=== PATIENT | female | born 1975 | race American Indian/Alaskan Native ===

== ENCOUNTER 2019-04-20 16:45 | Emergency (ER) | payer MEDICAID ==
--- NOTE | 2019-04-20 17:13 | Event Note ---
ED Screening Note Date of service: 04/20/19 Time: 17:12 ED Screening Note: 43 y o f presents with URI sx states her 2 sons have similar sx This initial assessment/diagnostic orders/clinical plan/treatment(s) is/are subject to change based on patients health status, clinical progression and re- assessment by fellow clinical providers in the ED. Further treatment and workup at subsequent clinical providers discretion. Patient/guardian urged not to elope from the ED as their condition may be serious if not clinically assessed and managed. Initial orders include:
--- NOTE | 2019-04-20 22:04 | Emergency Department Report ---
- General Chief Complaint: Upper Respiratory Infection Stated Complaint: FLU SYMPTOMS Time Seen by Provider: 04/20/19 17:11 Source: patient Mode of arrival: Ambulatory Limitations: No Limitations - History of Present Illness MD Complaint: rhinorrhea, nasal congestion, sinus pain -: Sudden, days(s) (2) Severity: moderate Severity scale (0 -10): 3 Quality: dull, aching Consistency: constant Improves With: nothing Worsens With: nothing Context: sick contacts Associated Symptoms: denies other symptoms, rhinorrhea, nasal congestion. denies: fever, chills, headache, sore throat, stiff neck, cough, chest pain, shortness of breath, abdominal pain, nausea, vomiting, diarrhea, rash, confusion, epistaxis, hoarseness, ear pain Treatments Prior to Arrival: none - Related Data Previous Rx's Medication Instructions Recorded Last Taken Type Famotidine [Pepcid] 40 mg PO QHS #10 tablet 04/15/19 Unknown Rx Ondansetron [Zofran Odt] 4 mg PO Q8HR #10 tab.rapdis 04/15/19 Unknown Rx traMADol [Ultram] 50 mg PO Q6HR PRN #12 tablet 04/15/19 Unknown Rx Cetirizine HCl [Zyrtec 10mg tab] 10 mg PO DAILY #30 tablet 04/20/19 Unknown Rx Fluticasone [Flonase] 1 spray NS QDAY #1 bottle 04/20/19 Unknown Rx Allergies Allergy/AdvReac Type Severity Reaction Status Date / Time No Known Allergies Allergy Verified 04/20/19 16:49 ED Review of Systems ROS: Stated complaint: FLU SYMPTOMS Other details as noted in HPI Constitutional: denies: chills, fever Eyes: denies: eye pain, eye discharge, vision change ENT: congestion. denies: ear pain, throat pain Respiratory: denies: cough, shortness of breath, wheezing Cardiovascular: denies: chest pain, palpitations Endocrine: no symptoms reported Gastrointestinal: denies: abdominal pain, nausea, diarrhea Genitourinary: denies: urgency, dysuria, discharge Musculoskeletal: denies: back pain, joint swelling, arthralgia Skin: denies: rash, lesions Neurological: denies: headache, weakness, paresthesias Psychiatric: denies: anxiety, depression Hematological/Lymphatic: denies: easy bleeding, easy bruising ED Past Medical Hx - Past Medical History Previous Medical History?: Yes Additional medical history: Obesity - Surgical History Past Surgical History?: Yes Additional Surgical History: Tonsillectomy - Social History Smoking Status: Never Smoker Substance Use Type: None - Medications Home Medications: Home Medications Medication Instructions Recorded Confirmed Last Taken Type Famotidine [Pepcid] 40 mg PO QHS #10 tablet 04/15/19 Unknown Rx Ondansetron [Zofran Odt] 4 mg PO Q8HR #10 tab.rapdis 04/15/19 Unknown Rx traMADol [Ultram] 50 mg PO Q6HR PRN #12 tablet 04/15/19 Unknown Rx Cetirizine HCl [Zyrtec 10mg tab] 10 mg PO DAILY #30 tablet 04/20/19 Unknown Rx Fluticasone [Flonase] 1 spray NS QDAY #1 bottle 04/20/19 Unknown Rx ED Physical Exam - General Limitations: No Limitations General appearance: alert, in no apparent distress - Head Head exam: Present: atraumatic, normocephalic, normal inspection - Eye Eye exam: Present: normal appearance, PERRL, EOMI Pupils: Present: normal accommodation - ENT ENT exam: Present: normal orophraynx, mucous membranes moist, TM's normal bilaterally, normal external ear exam, other (grossly congested nasal passages) - Neck Neck exam: Present: normal inspection, full ROM. Absent: tenderness, meningismus, lymphadenopathy, thyromegaly - Respiratory Respiratory exam: Present: normal lung sounds bilaterally. Absent: respiratory distress, wheezes, rhonchi, stridor, chest wall tenderness, accessory muscle use, decreased breath sounds, prolonged expiratory - Cardiovascular Cardiovascular Exam: Present: regular rate, normal rhythm, normal heart sounds. Absent: systolic murmur, diastolic murmur, rubs, gallop - GI/Abdominal GI/Abdominal exam: Present: soft, normal bowel sounds. Absent: tenderness, guarding, rebound, hyperactive bowel sounds, hypoactive bowel sounds, mass - Rectal Rectal exam: Present: deferred - Extremities Exam Extremities exam: Present: normal inspection, full ROM, normal capillary refill - Back Exam Back exam: Present: normal inspection, full ROM. Absent: CVA tenderness (L), muscle spasm, paraspinal tenderness - Neurological Exam Neurological exam: Present: alert, oriented X3, CN II-XII intact, normal gait, reflexes normal - Psychiatric Psychiatric exam: Present: normal affect, normal mood - Skin Skin exam: Present: warm, dry, intact, normal color. Absent: rash ED Course Vital Signs 04/20/19 04/20/19 17:11 22:12 Temperature 97.6 F 98.3 F Pulse Rate 91 H 95 H Respiratory 20 19 Rate Blood Pressure 114/83 Blood Pressure 118/71 [Left] O2 Sat by Pulse 95 98 Oximetry - Reevaluation(s) Reevaluation #1: 04/20/19 22:15 Patient is a 43-year-old female who presented to the ED with nasal and sinus congestion 2 days. ED: Patient is alert and oriented 3 and is not in distress. Patient was discharged home on medications, vital signs are stable. Patient was advised to follow-up with her primary care physician in 7-10 days for reevaluation or return to the ED immediately if symptoms get worse. ED Medical Decision Making - Medical Decision Making Patient is a 43-year-old female who presented to the ED with nasal and sinus congestion 2 days. ED: Patient is alert and oriented 3 and is not in distress. Patient was discharged home on medications, vital signs are stable. Patient was advised to follow-up with her primary care physician in 7-10 days for reevaluation or return to the ED immediately if symptoms get worse. - Differential Diagnosis Acute URI; Acute sinusitis; acute viral URI Critical care attestation.: If time is entered above; I have spent that time in minutes in the direct care of this critically ill patient, excluding procedure time. ED Disposition Clinical Impression: Acute upper respiratory infection, Viral upper respiratory infection Disposition: - TO HOME OR SELFCARE Is pt being admited?: No Does the pt Need Aspirin: No Condition: Stable Instructions: Upper Respiratory Infection (ED), Cold Symptoms (ED) Additional Instructions: Take medication with food, drink plenty of fluids and follow-up with your primary care physician in 5-7 days for reevaluation. Return to the ED immediately if symptoms get worse. Prescriptions: Fluticasone [Flonase] 1 spray NS QDAY #1 bottle Cetirizine HCl [Zyrtec 10mg tab] 10 mg PO DAILY #30 tablet Referrals: MOHSEN DIAZ [Other] - 3-5 Days Time of Disposition: 21:59 Print Language: SINHALA
[2019-04-20 22:13] VITALS: BP 118/71
== END 2019-04-20 23:07 | disposition home or self-care (01) ==
LOC: ED 16:45
DX: J06.9 Acute upper respiratory infection, unspecified (principal); Z98.890 Other specified postprocedural states; Z79.899 Other long term (current) drug therapy
CPT/HCPCS: 99282

== ENCOUNTER 2020-09-05 17:04 | Emergency (ER) | payer SELFPAY ==
--- NOTE | 2020-09-05 18:01 | Event Note ---
ED Screening Note ED Screening Note: lower abd pain n/v for two days no diarrhea no fever no urinary symptoms no abnormal discharge normal BM this morning at 3 AM no blood in stool no pmhx no allergies to meds LNMP: 08/21/2020 This initial assessment/diagnostic orders/clinical plan/treatment(s) is/are subject to change based on patients health status, clinical progression and re- assessment by fellow clinical providers in the ED. Further treatment and workup at subsequent clinical providers discretion. Patient/guardian urged not to elope from the ED as their condition may be serious if not clinically assessed and managed. Initial orders include: labs, UA
[2020-09-05 19:57] LABS: Hematocrit 40.8 % (30.3-42.9); Hemoglobin 13.6 gm/dl (10.1-14.3); Mean Corpuscular HGB Conc 33 % (30-34); Mean Corpuscular Volume 89 fl (79-97); Platelet Count 168 K/mm3 (140-440); Red Blood Count 4.57 M/mm3 (3.65-5.03); Red Cell Distribution Width 14.9 % (13.2-15.2)
[2020-09-05 20:02] LABS: Alanine Aminotransferase 10 units/L (7-56); Albumin 3.7 g/dL (3.9-5); Blood Urea Nitrogen 12 mg/dL (7-17); Hemolysis Index 19
[2020-09-05 20:17] LABS: BUN/Creatinine Ratio 30
[2020-09-05 20:49] LABS: Bilirubin,Urine NEG (Negative); Blood,Urine NEG (Negative); Color,Urine Yellow (Yellow); Mucus,Urine FEW /HPF; Protein,Urine <15 mg/dL mg/dL (Negative); Urobilinogen,Urine < 2.0 mg/dL (<2.0)
--- NOTE | 2020-09-05 20:50 | Emergency Department Report ---
HPI - General Chief Complaint: Abdominal Pain Time Seen by Provider: 09/05/20 17:59 - HPI HPI: Room 40 The patient is a 44-year-old female present with a chief complaint of abdominal pain. The patient states for the past 2 days she has had intermittent suprapubic pain stating she feels as though something is moving. Patient admits to nausea vomiting and dizziness with her symptoms. The patient states she is concerned she may be even though she has had her tubes tied in the past. Patient states her LMP occurred August 21, 2020 and was the normal time. Patient denies dysuria, hematuria or vaginal discharge. Patient denies fever ED Past Medical Hx - Past Medical History Previous Medical History?: Yes Additional medical history: Obesity - Surgical History Past Surgical History?: Yes Additional Surgical History: Tonsillectomy, bilateral tubal ligation - Family History Family history: no significant - Social History Smoking Status: Never Smoker Substance Use Type: None (Denies illicit drug use) - Medications Home Medications: Home Medications Medication Instructions Recorded Confirmed Last Taken Type Famotidine [Pepcid] 40 mg PO QHS #10 tablet 04/15/19 Unknown Rx Ondansetron [Zofran Odt] 4 mg PO Q8HR #10 tab.rapdis 04/15/19 Unknown Rx traMADoL [Ultram] 50 mg PO Q6HR PRN #12 tablet 04/15/19 Unknown Rx Cetirizine HCl [Zyrtec 10mg tab] 10 mg PO DAILY #30 tablet 04/20/19 Unknown Rx Fluticasone [Flonase] 1 spray NS QDAY #1 bottle 04/20/19 Unknown Rx HYDROcodone/APAP 5-325 [[place] 1 - 2 each PO Q6HR PRN #10 tablet 09/05/20 Unknown Rx 5/325] Promethazine [Phenergan] 25 mg PO Q6HR PRN #20 tab 09/05/20 Unknown Rx Promethazine [Phenergan] 25 mg SD Q6HR PRN #5 supp.rect 09/05/20 Unknown Rx Sulfamethoxazole/Trimethoprim 1 each PO BID #14 tablet 09/05/20 Unknown Rx [Bactrim DS TAB] ED Review of Systems ROS: Stated complaint: ABDOMINAL/PUBIC PAIN Other details as noted in HPI Constitutional: denies: fever Eyes: denies: eye pain ENT: denies: throat pain Respiratory: no symptoms reported Cardiovascular: denies: chest pain Endocrine: no symptoms reported Gastrointestinal: abdominal pain, nausea, vomiting. denies: diarrhea Genitourinary: denies: dysuria, hematuria, discharge, abnormal menses Musculoskeletal: denies: back pain Neurological: denies: headache Physical Exam - Physical Exam Vital Signs: Vital Signs 09/05/20 17:11 Pulse Rate 69 Respiratory 18 Rate Blood Pressure 117/72 [Right] O2 Sat by Pulse 97 Oximetry Physical Exam: GENERAL: The patient is well-developed well-nourished female lying on stretcher not appearing to be in acute distress. [] HEENT: Normocephalic. Atraumatic. Extraocular motions are intact. Patient has moist mucous membranes. NECK: Supple. Trachea midline CHEST/LUNGS: Clear to auscultation. There is no respiratory distress noted. HEART/CARDIOVASCULAR: Regular. There is no tachycardia. There is no gallop rub or murmur. ABDOMEN: Abdomen is soft, with mild discomfort to palpation in the suprapubic region only. There is no rebound or guarding. Patient has normal bowel sounds. There is no abdominal distention. SKIN: There is no rash. There is no edema. There is no diaphoresis. NEURO: The patient is awake, alert, and oriented. The patient is cooperative. The patient has normal speech MUSCULOSKELETAL: There is no evidence of acute injury. ED Course Vital Signs 09/05/20 17:11 Pulse Rate 69 Respiratory 18 Rate Blood Pressure 117/72 [Right] O2 Sat by Pulse 97 Oximetry ED Medical Decision Making - Lab Data Result diagrams: 09/05/20 18:03 09/05/20 18:03 Laboratory Tests 09/05/20 09/05/20 09/05/20 18:03 18:03 18:03 WBC 7.1 RBC 4.57 Hgb 13.6 Hct 40.8 MCV 89 MCH 30 MCHC 33 RDW 14.9 Plt Count 168 Sodium 139 Potassium 4.2 Chloride 104.9 Carbon Dioxide 24 Anion Gap 14 BUN 12 Creatinine 0.4 L Estimated GFR > 60 BUN/Creatinine Ratio 30 Glucose 133 H Calcium 9.0 Total Bilirubin 0.30 AST 15 ALT 10 Alkaline Phosphatase 56 Total Protein 6.9 Albumin 3.7 L Albumin/Globulin Ratio 1.2 Lipase 24 HCG, Qual Negative Urine Color Urine Turbidity Urine pH Ur Specific [place] Urine Protein Urine Glucose (UA) Urine Ketones Urine Blood Urine Nitrite Urine Bilirubin Urine Urobilinogen Ur Leukocyte Esterase Urine WBC (Auto) Urine RBC (Auto) U Epithel Cells (Auto) Urine Mucus 09/05/20 19:21 WBC RBC Hgb Hct MCV MCH MCHC RDW Plt Count Sodium Potassium Chloride Carbon Dioxide Anion Gap BUN Creatinine Estimated GFR BUN/Creatinine Ratio Glucose Calcium Total Bilirubin AST ALT Alkaline Phosphatase Total Protein Albumin Albumin/Globulin Ratio Lipase HCG, Qual Urine Color Yellow Urine Turbidity Clear Urine pH 6.0 Ur Specific [place] 1.016 Urine Protein <15 mg/dl Urine Glucose (UA) Neg Urine Ketones Neg Urine Blood Neg Urine Nitrite Pos Urine Bilirubin Neg Urine Urobilinogen < 2.0 Ur Leukocyte Esterase Neg Urine WBC (Auto) 10.0 H Urine RBC (Auto) 1.0 U Epithel Cells (Auto) 2.0 Urine Mucus Few - Radiology Data Radiology results: report reviewed (CT abdomen pelvis), image reviewed (CT abdomen pelvis) Findings [facility] [address] [place] [address] Cat Scan Report Signed Patient: FAWAD BARILLAS MR#: [id number] : 1975 Acct:[id number] Age/Sex: 44 / F ADM Date: 09/05/20 Loc: ED Attending Dr: Ordering Physician: NOEMI ADAMSON MD Date of Service: 09/05/20 Procedure(s): CT abdomen pelvis w con Accession Number(s): [id number] cc: NOEMI ADAMSON MD CT ABDOMEN AND PELVIS WITH CONTRAST INDICATION: Lower abdominal pain CONTRAST: 100 cc Omnipaque 300 IV COMPARISON: None available. All CT scans at this location are performed using CT dose reduction for ALARA by means of automated exposure control. NOTE: Resolution is decreased and artifact is introd uced by the patient's size. FINDINGS: Lung bases are clear. No pneumoperitoneum is noted. No significant abdominal wall herniation is seen. No bowel or urinary obstructive changes are seen. Appendix appears within normal limits. No abdominal masses are seen. Gallbladder and bile ducts appear within normal limits. No focal inflammatory changes are seen. Small physiologic type ovarian cysts are noted. A small uterine leiomyoma is seen. No free fluid is seen. IMPRESSION: No acute abnormalities are seen Signer Name: Shailesh Dixon MD Signed: 09/05/2020 11:37 PM Workstation Name: [id number] Transcribed By: GJ Dictated By: Shailesh Dixon MD Electronically Authenticated By: Shailesh Dixon MD Signed Date/Time: 09/05/202336 DD/ 31 TD/TT: - Differential Diagnosis UTI, ectopic , appendicitis, gastritis Critical care attestation.: If time is entered above; I have spent that time in minutes in the direct care of this critically ill patient, excluding procedure time. ED Disposition Clinical Impression: Abdominal pain, UTI (urinary tract infection), Nausea & vomiting Disposition: TO HOME OR SELFCARE Is pt being admited?: No Does the pt Need Aspirin: No Condition: Stable Instructions: Abdominal Pain (ED), Urinary Tract Infection, Adult, [id number], Vomiting, Adult Additional Instructions: Return to the emergency department should you develop worsening symptoms, inability to tolerate food or liquids, high fever or any other concerns Prescriptions: Sulfamethoxazole/Trimethoprim [Bactrim DS TAB] 1 each PO BID #14 tablet HYDROcodone/APAP 5-325 [[place] 5/325] 1 - 2 each PO Q6HR PRN #10 tablet PRN Reason: Pain Promethazine [Phenergan] 25 mg PO Q6HR PRN #20 tab PRN Reason: Nausea Promethazine [Phenergan] 25 mg SD Q6HR PRN #5 supp.rect PRN Reason: Vomiting Referrals: PRIMARY CARE, [Primary Care Provider] - 3-5 Days Time of Disposition: 23:49
--- NOTE | 2020-09-05 23:42 | Cat Scan Report ---
CT ABDOMEN AND PELVIS WITH CONTRAST INDICATION: Lower abdominal pain CONTRAST: 100 cc Omnipaque 300 IV COMPARISON: None available. All CT scans at this location are performed using CT dose reduction for ALARA by means of automated e xposure control. NOTE: Resolution is decreased and artifact is introduced by the patient's size. FINDINGS: Lung bases are clear. No pneumoperitoneum is noted. No significant abdominal wall herniatio n is seen. No bowel or urinary obstructive changes are seen. Appendix appears within normal limits. N o abdominal masses are seen. Gallbladder and bile ducts appear within normal limits. No focal inflamm atory changes are seen. Small physiologic type ovarian cysts are noted. A small uterine leiomyoma is seen. No free fluid is seen. IMPRESSION: No acute abnormalities are seen Signer Name: Shailesh Dixon MD Signed: 09/05/2020 11:37 PM Workstation Name: [id number]
[2020-09-06 00:05] LABS: Total Cells Counted 100
[2020-09-06 00:08] LABS: RBC Morphology Normal
[2020-09-06 00:09] LABS: Large Platelets Rare; Platelet Estimate Cons
[2020-09-06 00:20] VITALS: BP 115/74
== END 2020-09-06 00:19 | disposition home or self-care (01) ==
LOC: ED 17:04
DX: N39.0 Urinary tract infection, site not specified (principal); R11.2 Nausea with vomiting, unspecified; Z98.51 Tubal ligation status; Z79.899 Other long term (current) drug therapy
CPT/HCPCS: 36415; 74177; 80053; 81001; 83690; 84703; 85007; 85025; 87086; 99284; Q9967

== ENCOUNTER 2021-07-25 00:20 | Emergency (ER) | payer MEDICAID ==
[2021-07-25 00:28] VITALS: BP 120/76
--- NOTE | 2021-07-25 02:38 | Emergency Department Report ---
ED Abdominal Pain HPI - General Chief Complaint: Abdominal Pain Stated Complaint: ABD PAIN Time Seen by Provider: 07/25/21 01:42 Source: patient Mode of arrival: Ambulatory Limitations: No Limitations - Related Data Previous Rx's Medication Instructions Recorded Last Taken Type Famotidine [Pepcid] 40 mg PO QHS #10 tablet 04/15/19 Unknown Rx Ondansetron [Zofran Odt] 4 mg PO Q8HR #10 tab.rapdis 04/15/19 Unknown Rx traMADoL [Ultram] 50 mg PO Q6HR PRN #12 tablet 04/15/19 Unknown Rx Cetirizine HCl [Zyrtec 10mg tab] 10 mg PO DAILY #30 tablet 04/20/19 Unknown Rx Fluticasone [Flonase] 1 spray NS QDAY #1 bottle 04/20/19 Unknown Rx HYDROcodone/APAP 5-325 [[place] 1 - 2 each PO Q6HR PRN #10 tablet 09/05/20 Unknown Rx 5/325] Promethazine [Phenergan] 25 mg PO Q6HR PRN #20 tab 09/05/20 Unknown Rx Promethazine [Phenergan] 25 mg MO Q6HR PRN #5 supp.rect 09/05/20 Unknown Rx Sulfamethoxazole/Trimethoprim 1 each PO BID #14 tablet 09/05/20 Unknown Rx [Bactrim DS TAB] Ibuprofen [Motrin] 600 mg PO Q8H PRN #20 tablet 07/25/21 Unknown Rx Allergies Allergy/AdvReac Type Severity Reaction Status Date / Time No Known Allergies Allergy Verified 07/25/21 00:27 ED Review of Systems ROS: Stated complaint: ABD PAIN Other details as noted in HPI ED Past Medical Hx - Past Medical History Additional medical history: Obesity - Surgical History Additional Surgical History: Tonsillectomy, bilateral tubal ligation - Social History Smoking Status: Never Smoker Substance Use Type: None (Denies illicit drug use) - Medications Home Medications: Home Medications Medication Instructions Recorded Confirmed Last Taken Type Famotidine [Pepcid] 40 mg PO QHS #10 tablet 04/15/19 Unknown Rx Ondansetron [Zofran Odt] 4 mg PO Q8HR #10 tab.rapdis 04/15/19 Unknown Rx traMADoL [Ultram] 50 mg PO Q6HR PRN #12 tablet 08/29/19 Unknown Rx Cetirizine HCl [Zyrtec 10mg tab] 10 mg PO DAILY #30 tablet 04/20/19 Unknown Rx Fluticasone [Flonase] 1 spray NS QDAY #1 bottle 04/20/19 Unknown Rx HYDROcodone/APAP 5-325 [[place] 1 - 2 each PO Q6HR PRN #10 tablet 09/05/20 Unknown Rx 5/325] Promethazine [Phenergan] 25 mg PO Q6HR PRN #20 tab 09/05/20 Unknown Rx Promethazine [Phenergan] 25 mg MO Q6HR PRN #5 supp.rect 09/05/20 Unknown Rx Sulfamethoxazole/Trimethoprim 1 each PO BID #14 tablet 09/05/20 Unknown Rx [Bactrim DS TAB] Ibuprofen [Motrin] 600 mg PO Q8H PRN #20 tablet 07/25/21 Unknown Rx ED Physical Exam - General Limitations: No Limitations ED Course Vital Signs 07/25/21 00:24 Temperature 98.3 F Pulse Rate 94 H Respiratory 17 Rate Blood Pressure 120/76 [Right] O2 Sat by Pulse 98 Oximetry - Reevaluation(s) Reevaluation #1: 07/25/21 02:38 Patient was discharged Critical care attestation.: If time is entered above; I have spent that time in minutes in the direct care of this critically ill patient, excluding procedure time. ED Disposition Clinical Impression: Irregular menses, Lower abdominal pain Disposition: 01 HOME / SELF CARE / HOMELESS Is pt being admited?: No Condition: Stable Instructions: Pain Without a Known Cause, Abdominal Pain (ED) Additional Instructions: Drink plenty water. Return for problems. See a grinder outside diameter for recheck. Use Tylenol for pain. Prescriptions: Ibuprofen [Motrin] 600 mg PO Q8H PRN #20 tablet PRN Reason: Pain Referrals: PRIMARY CARE, [Primary Care Provider] - 3-5 Days MYAH ARGUELLES MD [Staff Physician] - 3-5 Days ALISA COLIN MD [Staff Physician] - 3-5 Days
== END 2021-07-25 03:10 | disposition home or self-care (01) ==
LOC: ED 00:20
DX: N92.6 Irregular menstruation, unspecified (principal); R10.30 Lower abdominal pain, unspecified; Z90.89 Acquired absence of other organs; Z98.51 Tubal ligation status; Z79.899 Other long term (current) drug therapy
CPT/HCPCS: 36415; 84703; 99283

== ENCOUNTER 2022-02-21 22:33 | Emergency (ER) | payer MEDICAID ==
[2022-02-21 23:29] LABS: Mucus,Urine 3+ /HPF
[2022-02-21 23:37] LABS: Bilirubin,Urine Negative (Negative); Blood,Urine Moderate (Negative); Color,Urine Yellow (Yellow)
[2022-02-21 23:43] LABS: Basophils % (Auto) 0.4 % (0.0-1.8); Eosinophils % (Auto) 0.1 % (0.0-4.3); Hematocrit 44.5 % (30.3-42.9); Hemoglobin 14.7 gm/dl (10.1-14.3); Lymphocytes # (Auto) 1.4 K/mm3 (1.2-5.4); Lymphocytes % (Auto) 34.4 % (13.4-35.0); Mean Corpuscular HGB Conc 33 % (30-34); Mean Corpuscular Volume 87 fl (79-97); Monocytes # (Auto) 0.4 K/mm3 (0.0-0.8); Monocytes % (Auto) 9.5 % (0.0-7.3); Platelet Count 169 K/mm3 (140-440); Red Cell Distribution Width 14.2 % (13.2-15.2)
[2022-02-22] MEDS ORDERED: ONDANSETRON 4 MG ODT TAB PO ONE (04:27)
[2022-02-22] MEDS ORDERED: ACETAMINOPHEN 500 MG TAB PO ONE (04:27)
[2022-02-22] MEDS ORDERED: IBUPROFEN 600 MG TAB PO ONE (04:27)
[2022-02-22 04:52] LABS: Alanine Aminotransferase 23 units/L (7-56); Albumin 4.3 g/dL (3.9-5); Blood Urea Nitrogen 12 mg/dL (7-17); Calcium 10.1 mg/dL (8.4-10.2); Hemolysis Index 6
[2022-02-22 04:55] LABS: BUN/Creatinine Ratio 24
--- NOTE | 2022-02-22 05:25 | Emergency Department Report ---
ED Female HPI - General Chief complaint: Vaginal Bleeding Stated complaint: HEAD HURTS/STILL BLEEDING HEAVY Source: patient Mode of arrival: Ambulatory Limitations: No Limitations - History of Present Illness Initial comments: Patient is a 46-year-old female with no past medical history who presents to the ED with complaint of persistent pelvic pain and heavy vaginal bleeding with large blood clots for the last 1 week. Patient states that her cycle usually lasts 5 to 6 days but that it has extended to over 9 days with worsening pelvic pain. Patient also complains of lightheadedness and generalized weakness. Patient denies dysuria, urinary frequency and urgency, nausea and vomiting or diarrhea, fever, chills, cough, sore throat, heavy lifting, traumatic injury, low back pain, chest pain and shortness of breath or change in vision. MD Complaint: vaginal bleeding, pelvic pain, other (Heavy vaginal bleeding) -: week(s) (1) Location: suprapubic Radiation: non-radiating Severity: severe Severity scale (0 -10): 8 Quality: cramping, sharp Consistency: constant Improves with: none Worsens with: menstrual period Are you Now?: No Associated Symptoms: denies other symptoms, vaginal bleeding, abdominal pain (Suprapubic). denies: vaginal discharge, nausea/vomiting, fever/chills, headaches, loss of appetite, dysuria, hematuria, rash, seizure, shortness of breath, syncope, weakness - Related Data Sexually active: Yes Previous Rx's Medication Instructions Recorded Last Taken Type Famotidine [Pepcid] 40 mg PO QHS #10 tablet 04/15/19 Unknown Rx Ondansetron [Zofran Odt] 4 mg PO Q8HR #10 tab.rapdis 04/15/19 Unknown Rx Cetirizine HCl [Zyrtec 10mg tab] 10 mg PO DAILY #30 tablet 04/20/19 Unknown Rx Fluticasone [Flonase] 1 spray NS QDAY #1 bottle 04/20/19 Unknown Rx HYDROcodone/APAP 5-325 [Halls 1 - 2 each PO Q6HR PRN #10 tablet 09/05/20 Unknown Rx 5/325] Promethazine [Phenergan] 25 mg PO Q6HR PRN #20 tab 09/05/20 Unknown Rx Promethazine [Phenergan] 25 mg WI Q6HR PRN #5 supp.rect 09/05/20 Unknown Rx Sulfamethoxazole/Trimethoprim 1 each PO BID #14 tablet 09/05/20 Unknown Rx [Bactrim DS TAB] Ibuprofen [Motrin] 600 mg PO Q8H PRN #20 tablet 07/25/21 Unknown Rx Ibuprofen [Motrin] 800 mg PO Q8HR PRN #30 tablet 02/22/22 Unknown Rx Ondansetron [Zofran Odt] 4 mg PO Q8HR PRN #15 tab.rapdis 02/22/22 Unknown Rx traMADoL [Ultram 50 MG tab] 50 mg PO Q6HR PRN #12 tablet 02/22/22 Unknown Rx Allergies Allergy/AdvReac Type Severity Reaction Status Date / Time No Known Allergies Allergy Verified 07/25/21 00:27 ED Review of Systems ROS: Stated complaint: HEAD HURTS/STILL BLEEDING HEAVY Other details as noted in HPI Constitutional: denies: chills, fever Eyes: denies: eye pain, eye discharge, vision change ENT: denies: ear pain, throat pain Respiratory: denies: cough, shortness of breath, wheezing Cardiovascular: denies: chest pain, palpitations Endocrine: no symptoms reported Gastrointestinal: abdominal pain (Suprapubic pain). denies: nausea, vomiting, diarrhea, constipation, hematemesis, hematochezia Genitourinary: abnormal menses (Vaginal bleeding). denies: urgency, dysuria, discharge Musculoskeletal: denies: back pain, joint swelling, arthralgia Skin: denies: rash, lesions Neurological: denies: headache, weakness, paresthesias Psychiatric: denies: anxiety, depression Hematological/Lymphatic: denies: easy bleeding, easy bruising ED Past Medical Hx - Past Medical History Additional medical history: Obesity - Surgical History Additional Surgical History: Tonsillectomy, bilateral tubal ligation - Social History Smoking Status: Never Smoker Substance Use Type: None (Denies illicit drug use) - Medications Home Medications: Home Medications Medication Instructions Recorded Confirmed Last Taken Type Famotidine [Pepcid] 40 mg PO QHS #10 tablet 04/15/19 Unknown Rx Ondansetron [Zofran Odt] 4 mg PO Q8HR #10 tab.rapdis 04/15/19 Unknown Rx Cetirizine HCl [Zyrtec 10mg tab] 10 mg PO DAILY #30 tablet 04/20/19 Unknown Rx Fluticasone [Flonase] 1 spray NS QDAY #1 bottle 04/20/19 Unknown Rx HYDROcodone/APAP 5-325 [Halls 1 - 2 each PO Q6HR PRN #10 tablet 09/05/20 Unknown Rx 5/325] Promethazine [Phenergan] 25 mg PO Q6HR PRN #20 tab 09/05/20 Unknown Rx Promethazine [Phenergan] 25 mg WI Q6HR PRN #5 supp.rect 09/05/20 Unknown Rx Sulfamethoxazole/Trimethoprim 1 each PO BID #14 tablet 09/05/20 Unknown Rx [Bactrim DS TAB] Ibuprofen [Motrin] 600 mg PO Q8H PRN #20 tablet 07/25/21 Unknown Rx Ibuprofen [Motrin] 800 mg PO Q8HR PRN #30 tablet 02/22/22 Unknown Rx Ondansetron [Zofran Odt] 4 mg PO Q8HR PRN #15 tab.rapdis 02/22/22 Unknown Rx traMADoL [Ultram 50 MG tab] 50 mg PO Q6HR PRN #12 tablet 02/22/22 Unknown Rx ED Physical Exam - General Limitations: No Limitations General appearance: alert, in no apparent distress - Head Head exam: Present: atraumatic, normocephalic, normal inspection - Eye Eye exam: Present: normal appearance, PERRL, EOMI Pupils: Present: normal accommodation - ENT ENT exam: Present: normal exam, normal orophraynx, mucous membranes moist, TM's normal bilaterally, normal external ear exam - Neck Neck exam: Present: normal inspection, full ROM. Absent: tenderness - Respiratory Respiratory exam: Present: normal lung sounds bilaterally. Absent: respiratory distress, wheezes, rales, rhonchi, stridor, chest wall tenderness, accessory muscle use, decreased breath sounds - Cardiovascular Cardiovascular Exam: Present: regular rate, normal rhythm, normal heart sounds. Absent: systolic murmur, diastolic murmur, rubs, gallop - GI/Abdominal GI/Abdominal exam: Present: soft, tenderness (Palpable suprapubic tenderness), normal bowel sounds. Absent: guarding, rebound, hyperactive bowel sounds, hypoactive bowel sounds, organomegaly, mass, pulsatile mass - Bi-manual exam: Present: other (Pelvic exam deferred at this time) - Extremities Exam Extremities exam: Present: normal inspection, full ROM, normal capillary refill. Absent: tenderness, pedal edema, joint swelling, calf tenderness - Back Exam Back exam: Present: normal inspection, full ROM. Absent: tenderness, CVA tenderness (R), CVA tenderness (L), muscle spasm, paraspinal tenderness, vertebral tenderness - Neurological Exam Neurological exam: Present: alert, oriented X3, CN II-XII intact, normal gait, reflexes normal - Psychiatric Psychiatric exam: Present: normal affect, normal mood - Skin Skin exam: Present: warm, dry, intact, normal color. Absent: rash ED Course Vital Signs 02/21/22 22:47 Temperature 98.5 F Pulse Rate 102 H Respiratory 16 Rate Blood Pressure 142/89 O2 Sat by Pulse 93 Oximetry ED Medical Decision Making - Lab Data Result diagrams: 02/21/22 23:14 02/21/22 23:14 - Radiology Data Radiology results: report reviewed, image reviewed [facility] [address] [place] [address] Ultrasound Report Signed Patient: FAWAD BARILLAS MR#: [id number] : 1975 Acct:[id number] Age/Sex: 46 / F ADM Date: 02/21/22 Loc: ED Attending Dr: Ordering Physician: MARGARETTE COOK Date of Service: 02/22/22 Procedure(s): US pelvic complete Accession Number(s): [id number] cc: MARGARETTE COOK ULTRASOUND PELVIS INDICATION / CLINICAL INFORMATION: PELVIC PAIN, VAGINAL BLEEDING. TECHNIQUE: Transabdominal. Duplex Color Doppler used: Yes. COMPARISON: None available FINDINGS: UTERUS: The uterus measures 8.7 cm. The uterus demonstrates a normal sonogr aphic appearance. The endometrial stripe measures 1.3 cm. RIGHT ADNEXA: No significant ovarian cyst or mass. Normal color Doppler blood flow. LEFT ADNEXA: No significant ovarian cyst or mass. Normal color Doppler blood flow. URINARY BLADDER: No significant abnormality. FREE FLUID: None. ADDITIONAL FINDINGS: None. IMPRESSION: 1. Endometrial stripe measures 1.3 cm. This may be physiologic in a premenopausal patient but is abnormally thickened in a postmenopausal patient. Recommend correlation with menstrual status. 2. No other significant abnormality. Signer Name: Darling Olson MD Signed: 02/22/2022 6:07 AM Workstation Name: [id number] Transcribed By: JULIETTE Dictated By: DARLING OLSON MD Electronically Authenticated By: DARLING OLSON MD Signed Date/Time: 02/22/22606 DD/ 4 TD/TT: - Medical Decision Making This is a 46-year-old female with no past medical history who presents to the ED with complaint of persistent pelvic pain and heavy vaginal bleeding with large blood clots for the last 1 week. Patient states that her cycle usually lasts 5 to 6 days but that it has extended to over 9 days with worsening pelvic pain. Patient also complains of lightheadedness and generalized weakness. In the ED, patient is alert and oriented x3 and is not in distress. Lab test results were reviewed and are all nonactionable except for mild hypokalemia of 3.3 mmol/L and blood in urine with no sign of urinary tract infection. Patient was treated for pain in the ED. The complete pelvic ultrasound showed endometrial stripe that measures 1.3 cm. This may be physiol ogic in a premenopausal patient but is abnormally thickened in a postmenopausal patient. Recommend correlation with menstrual status. On reevaluation, patient's pain is well controlled medication. Patient will discharge home on pain medications and advised to follow-up with her [employer] TECHNIC[facility] physician in 5 to 7 days for reevaluation. Patient is advised return to the ED immediately if symptoms get worse. - Differential Diagnosis DUB; menometrorrhagia; UTI; ovarian cyst; uterine fibroids Critical care attestation.: If time is entered above; I have spent that time in minutes in the direct care of this critically ill patient, excluding procedure time. ED Disposition Clinical Impression: Dysfunctional uterine bleeding, Menometrorrhagia, Severe dysmenorrhea Disposition: 01 HOME / SELF CARE / HOMELESS Is pt being admited?: No Does the pt Need Aspirin: No Condition: Stable Instructions: Metrorrhagia, [id number], Menorrhagia, [id number], Abnormal Uterine Bleeding, [id number], Dysmenorrhea, [id number] Additional Instructions: All lab test results were reviewed and are nonactionable except for mild hypokalemia of 3.3 mmol/L and blood in urine consistent with patient's current menstrual cycle. Therefore maintain a complete blood work rest, follow-up with your [employer]TRAC[employer] TECHNICIAN physician in 5 to 7 days for reevaluation. Return to ED immediately if symptoms get worse. Prescriptions: Ibuprofen [Motrin] 800 mg PO Q8HR PRN #30 tablet PRN Reason: Pain , Severe (7-10) traMADoL [Ultram 50 MG tab] 50 mg PO Q6HR PRN #12 tablet PRN Reason: Pain Ondansetron [Zofran Odt] 4 mg PO Q8HR PRN #15 tab.rapdis PRN Reason: Nausea Referrals: ALISA COLIN MD [Staff Physician] - 7-10 days Forms: Work/School Release Form(ED) Time of Disposition: 05:24 Print Language: ITALIAN
--- NOTE | 2022-02-22 06:11 | Ultrasound Report ---
ULTRASOUND PELVIS INDICATION / CLINICAL INFORMATION: PELVIC PAIN, VAGINAL BLEEDING. TECHNIQUE: Transabdominal. Duplex Color Doppler used: Yes. COMPARISON: None available FINDINGS: UTERUS: The uterus measures 8.7 cm. The uterus demonstrates a normal sonographic appearance. The end ometrial stripe measures 1.3 cm. RIGHT ADNEXA: No significant ovarian cyst or mass. Normal color Doppler blood flow. LEFT ADNEXA: No significant ovarian cyst or mass. Normal color Doppler blood flow. URINARY BLADDER: No significant abnormality. FREE FLUID: None. ADDITIONAL FINDINGS: None. IMPRESSION: 1. Endometrial stripe measures 1.3 cm. This may be physiologic in a premenopausal patient but is abno rmally thickened in a postmenopausal patient. Recommend correlation with menstrual status. 2. No other significant abnormality. Signer Name: Keaton Olson MD Signed: 02/22/2022 6:07 AM Workstation Name: [id number]
[2022-02-22 06:31] VITALS: BP 136/81
== END 2022-02-22 06:49 | disposition home or self-care (01) ==
LOC: ED 22:33
DX: N89.8 Other specified noninflammatory disorders of vagina (principal); N92.1 Excessive and frequent menstruation with irregular cycle; N94.6 Dysmenorrhea, unspecified
CPT/HCPCS: 36415; 76856; 80053; 81001; 84702; 84703; 85025; 86900; 86901; 87086; 99284; J3490; Q0162